=== PATIENT | female | born 1995 | race Caucasian/White ===

== ENCOUNTER 2018-09-06 19:59 | Emergency (ER) | payer OTHER ==
[2018-09-06 20:13] VITALS: BP 155/98
--- NOTE | 2018-09-06 20:31 | ERPHSYRPT ---
- History of Present Illness Time Seen by Provider: 09/06/18 20:16 Source: patient Exam Limitations: no limitations Patient Subjective Stated Complaint: rolled ankle laterally 09/05/18 and fell Triage Nursing Assessment: Pt alert and oriented x 3. Only complaint is right ankle pain. Nonpitting edema to lateral right ankle present. No bruising. Limited ROM. Pedal pulses equal and normal in strength. Denies numbness or tingling. Physician History: Pt states, she twisted her right ankle yesterday at home on steps, suffered inversion injury, no other injury or complaints. Method of Injury: twisted Occurred: yesterday Quality: constant Severity of Pain-Max: moderate Severity of Pain-Current: moderate Lower Extremities Pain: ankle: right Modifying Factors: Improves With: movement Associated Symptoms: none Allergies/Adverse Reactions: amoxicillin Allergy (Verified 09/06/18 20:13) Home Medications: No Reportable Medications [No Reported Medications] 09/06/18 [History] Hx Tetanus, Diphtheria Vaccination/Date Given: Yes Hx Influenza Vaccination/Date Given: Yes Immunizations Up to Date: Yes - Review of Systems Constitutional: No Symptoms Abdominal/Gastrointestinal: No Symptoms Musculoskeletal: Other (right ankle pain, swelling) All Other Systems: Reviewed and Negative - Past Medical History Pertinent Past Medical History: No Neurological History: Migraines ENT History: No Pertinent History Cardiac History: No Pertinent History Respiratory History: No Pertinent History Endocrine Medical History: No Pertinent History Musculoskeletal History: No Pertinent History GI Medical History: No Pertinent History History: No Pertinent History Psycho-Social History: No Pertinent History Female Reproductive Disorders: No Pertinent History - Past Surgical History Past Surgical History: Yes Neuro Surgical History: No Pertinent History Cardiac: No Pertinent History Respiratory: No Pertinent History Gastrointestinal: Appendectomy Genitourinary: No Pertinent History Musculoskeletal: Other Female Surgical History: No Pertinent History Other Surgical History: bilateral knee surgeries - Social History Smoking Status: Never smoker Drug Use: none - Female History Hx Last Menstrual Period: 08/30/18 Hx Now: No - Nursing Vital Signs Nursing Vital Signs: Initial Vital Signs Temperature 98 F 09/06/18 20:04 Pulse Rate 100 H 09/06/18 20:04 Respiratory Rate 18 09/06/18 20:04 Blood Pressure 155/98 09/06/18 20:04 O2 Sat by Pulse Oximetry 98 09/06/18 20:04 Pain Scale Pain Intensity 4 - Physical Exam General Appearance: no apparent distress Eyes, Ears, Nose, Throat Exam: normal ENT inspection Cardiovascular/Respiratory Exam: chest non-tender, normal breath sounds Gastrointestinal/Abdominal Exam: non-tender Back Exam: normal inspection, No CVA tenderness Legs Exam: right leg: non-tender Knees Exam: right knee: non-tender Ankle Exam: right ankle: pain, soft tissue tenderness (right lateral ankle, dorsal foot area), swelling, other (no deformity, good distal pulses) Foot Exam: right foot: soft tissue tenderness (dorsolateral foot) Neuro/Tendon Exam: normal sensation, normal motor functions Mental Status Exam: alert, oriented x 3, cooperative Skin Exam: normal color, warm, dry SpO2 Interpretation: normal SpO2: 98 O2 Delivery: Room Air - Course Nursing assessment & vital signs reviewed: Yes - Radiology Exams Right Ankle X-ray Interpretation: Interpreted by me, Negative Ordered Tests: Active Orders 24 hr Category Date Time Status Luis Alfredo Bandage Application -[facility] STAT Care 09/06/18 20:56 Active Crutches STAT Care 09/06/18 20:56 Active ANKLE (3 VIEWS) Stat Exams 09/06/18 20:26 Taken - Progress Progress: unchanged Progress Note: 09/06/18 20:59 Pt was educated about her Xray result,LUIS ALFREDO band was applied, and crutches given, she is being discharged to rest x 2-3 days with elevated leg, apply ice or cold compresses to swelling, and follow up with her physician in 3-4 days. Counseled pt/family regarding: diagnosis, need for follow-up, rad results - Departure Time of Disposition: 21:01 Departure Disposition: Home Clinical Impression: Ankle sprain Qualifiers: Encounter type: initial encounter Involved ligament of ankle: anterior talofibular ligament Laterality: right Qualified Code(s): S93.491A - Sprain of other ligament of right ankle, initial encounter Condition: Stable Critical Care Time: No Referrals: Nusrat Quezada MD [Primary Care Provider] - Instructions: Ankle Sprain (DC) Additional Instructions: Rest with elevated leg x 2-3 days, apply ice or cold compresses to swelling, and follow up with your physician next week, return if severe pain, swelling, sudden discoloration, coldness of the toes!
[2018-09-06 21:19] VITALS: PULSE 95; O2SAT 99
--- NOTE | 2018-09-07 08:37 | XRAY ---
Indication: Lateral ankle pain following twisting injury. Comparison: None 3 views of the right ankle demonstrates soft tissue swelling. No other bony, articular, or soft tissue abnormalities.
== END 2018-09-06 21:20 | disposition home or self-care (01) ==
LOC: ED 19:59
DX: S93.491A Sprain of other ligament of right ankle, initial encounter (principal); X50.1XXA Overexertion from prolonged static or awkward postures, initial encounter
CPT/HCPCS: 73610; 99283